=== PATIENT | female | born 1980 | race American Indian/Alaskan Native ===

== ENCOUNTER 2020-02-02 12:30 | Inpatient (IN) | payer MEDICAID, MEDICARE ==
[2020-02-02] MEDS ORDERED: ONDANSETRON 4 MG/2 ML INJ IV ONE (13:27)
[2020-02-02] MEDS ORDERED: SODIUM CHLORIDE 0.9% 1000 ML 1,000 ML IV ONE (13:27)
[2020-02-02] MEDS ORDERED: MORPHINE 4 MG/1 ML INJ IV ONE (13:27)
[2020-02-02 13:29] LABS: Basophils # (Auto) 0.1 K/mm3 (0.0-0.1); Eosinophils # (Auto) 0.3 K/mm3 (0.0-0.4); Eosinophils % (Auto) 2.6 % (0.0-4.3); Hematocrit 42.8 % (30.3-42.9); Hemoglobin 14.1 gm/dl (10.1-14.3); Lymphocytes # (Auto) 1.5 K/mm3 (1.2-5.4); Lymphocytes % (Auto) 15.7 % (13.4-35.0); Mean Corpuscular HGB Conc 33 % (30-34); Mean Corpuscular Volume 86 fl (79-97); Monocytes # (Auto) 0.8 K/mm3 (0.0-0.8); Monocytes % (Auto) 7.7 % (0.0-7.3); Platelet Count 313 K/mm3 (140-440); Red Blood Count 4.96 M/mm3 (3.65-5.03); Red Cell Distribution Width 15.4 % (13.2-15.2)
[2020-02-02 13:59] LABS: Alanine Aminotransferase 13 units/L (7-56); BUN/Creatinine Ratio 11; Blood Urea Nitrogen 8 mg/dL (7-17); Calcium 9.5 mg/dL (8.4-10.2); Hemolysis Index 13
--- NOTE | 2020-02-02 14:15 | Emergency Department Report ---
ED Abdominal Pain HPI - General Chief Complaint: Abdominal Pain Stated Complaint: ABD PAIN Time Seen by Provider: 02/02/20 13:21 Source: patient Mode of arrival: Ambulatory Limitations: No Limitations - History of Present Illness Initial Comments: Patient is a 39-year-old female presents emergency room with complaints of lower abdominal pain that began yesterday around 3 PM. She states at first she thought she may be constipated but has been having daily bowel movements. She states that she used an enema and had a small hard bowel movement. She states that she continued to have pain even after using the enema. She has associated nausea and one episode of vomiting. She denies any diarrhea, urinary symptoms, hematochezia, hematemesis, melena. She denies any past medical history or allergies to medications. She states that she has an abdominal surgical history of x1 and ovarian cyst removal which was performed laparoscopically. She states that they did not do an oophorectomy. Last menstrual cycle 01/07/2020. Severity scale (0 -10): 10 - Related Data Allergies Allergy/AdvReac Type Severity Reaction Status Date / Time No Known Allergies Allergy Verified 02/02/20 12:49 ED Review of Systems ROS: Stated complaint: ABD PAIN Other details as noted in HPI Comment: All other systems reviewed and negative ED Physical Exam - General Limitations: No Limitations General appearance: alert, in no apparent distress - Head Head exam: Present: atraumatic, normocephalic - Eye Eye exam: Present: normal appearance - ENT ENT exam: Present: mucous membranes moist - Respiratory Respiratory exam: Present: normal lung sounds bilaterally. Absent: respiratory distress, wheezes, rales, rhonchi, stridor, chest wall tenderness, accessory muscle use, decreased breath sounds, prolonged expiratory - Cardiovascular Cardiovascular Exam: Present: regular rate, normal rhythm, normal heart sounds. Absent: systolic murmur, diastolic murmur, rubs, gallop - GI/Abdominal GI/Abdominal exam: Present: soft, tenderness (lower abdominal ttp, RLQ greater than LLQ), guarding (voluntary), normal bowel sounds. Absent: distended, rebound, rigid - Neurological Exam Neurological exam: Present: alert, oriented X3 - Psychiatric Psychiatric exam: Present: normal affect, normal mood - Skin Skin exam: Present: warm, dry, intact ED Course Vital Signs 02/02/20 02/02/2020 12:50 13:41 15:35 Temperature 97.3 F L Pulse Rate 78 Respiratory 20 18 18 Rate Blood Pressure 126/68 [Left] O2 Sat by Pulse 98 Oximetry 02/02/20 02/02/20 16:08 16:11 Temperature 98.2 F Pulse Rate 76 Respiratory 18 18 Rate Blood Pressure 130/72 [Left] O2 Sat by Pulse 98 99 Oximetry - Consultations Consultation #1: 02/02/20 15:[address] Samaniego, ACCOUNT INSTALLATION SPECIALIST who states that pt will have to go to OR for ex lap, advised to give pt azithromycin and ancef 2g, will accept and resume care of pt ED Medical Decision Making - Lab Data Result diagrams: 02/02/20 13:02 02/02/20 13:02 Lab Results 02/02/20 02/02/20 02/02/20 Range/Units 13:02 13:02 13:02 WBC 9.8 (4.5-11.0) K/mm3 RBC 4.96 (3.65-5.03) M/mm3 Hgb 14.1 (10.1-14.3) gm/dl Hct 42.8 (30.3-42.9) % MCV 86 (79-97) fl MCH 29 (28-32) pg MCHC 33 (30-34) % RDW 15.4 H (13.2-15.2) % Plt Count 313 (140-440) K/mm3 Lymph % (Auto) 15.7 (13.4-35.0) % Meigs % (Auto) 7.7 H (0.0-7.3) % Eos % (Auto) 2.6 (0.0-4.3) % Baso % (Auto) 1.0 (0.0-1.8) % Lymph # 1.5 (1.2-5.4) K/mm3 Meigs # 0.8 (0.0-0.8) K/mm3 Eos # 0.3 (0.0-0.4) K/mm3 Baso # 0.1 (0.0-0.1) K/mm3 Seg Neutrophils % 73.0 H (40.0-70.0) % Seg Neutrophils # 7.2 (1.8-7.7) K/mm3 Sodium 139 (137-145) mmol/L Potassium 4.9 (3.6-5.0) mmol/L Chloride 104.3 (98-107) mmol/L Carbon Dioxide 20 L (22-30) mmol/L Anion Gap 20 mmol/L BUN 8 (7-17) mg/dL Creatinine 0.7 (0.7-1.2) mg/dL Estimated GFR > 60 ml/min BUN/Creatinine Ratio 11 % Glucose 103 H (65-100) mg/dL Calcium 9.5 (8.4-10.2) mg/dL Total Bilirubin 0.20 (0.1-1.2) mg/dL AST 14 (5-40) units/L ALT 13 (7-56) units/L Alkaline Phosphatase 59 (35-129) units/L Total Protein 7.7 (6.3-8.2) g/dL Albumin 4.0 (3.9-5) g/dL Albumin/Globulin Ratio 1.1 % Lipase 88 H (13-60) units/L HCG, Qual (Negative) Urine Color (Yellow) Urine Turbidity (Clear) Urine pH (5.0-7.0) Ur Specific [place] (1.003-1.030) Urine Protein (Negative) mg/dL Urine Glucose (UA) (Negative) mg/dL Urine Ketones (Negative) mg/dL Urine Blood (Negative) Urine Nitrite (Negative) Urine Bilirubin (Negative) Urine Urobilinogen (<2.0) mg/dL Ur Leukocyte Esterase (Negative) Urine WBC (Auto) (0.0-6.0) /HPF Urine RBC (Auto) (0.0-6.0) /HPF U Epithel Cells (Auto) (0-13.0) /HPF 02/02/20 02/02/20 Range/Units 13:02 14:22 WBC (4.5-11.0) K/mm3 RBC (3.65-5.03) M/mm3 Hgb (10.1-14.3) gm/dl Hct (30.3-42.9) % MCV (79-97) fl MCH (28-32) pg MCHC (30-34) % RDW (13.2-15.2) % Plt Count (140-440) K/mm3 Lymph % (Auto) (13.4-35.0) % Meigs % (Auto) (0.0-7.3) % Eos % (Auto) (0.0-4.3) % Baso % (Auto) (0.0-1.8) % Lymph # (1.2-5.4) K/mm3 [place]igs # (0.0-0.8) K/mm3 Eos # (0.0-0.4) K/mm3 Baso # (0.0-0.1) K/mm3 Seg Neutrophils % (40.0-70.0) % Seg Neutrophils # (1.8-7.7) K/mm3 Sodium (137-145) mmol/L Potassium (3.6-5.0) mmol/L Chloride (98-107) mmol/L Carbon Dioxide (22-30) mmol/L Anion Gap mmol/L BUN (7-17) mg/dL Creatinine (0.7-1.2) mg/dL Estimated GFR ml/min BUN/Creatinine Ratio % Glucose (65-100) mg/dL Calcium (8.4-10.2) mg/dL Total Bilirubin (0.1-1.2) mg/dL AST (5-40) units/L ALT (7-56) units/L Alkaline Phosphatase (35-129) units/L Total Protein (6.3-8.2) g/dL Albumin (3.9-5) g/dL Albumin/Globulin Ratio % Lipase (13-60) units/L HCG, Qual Negative (Negative) Urine Color Straw (Yellow) Urine Turbidity Clear (Clear) Urine pH 7.0 (5.0-7.0) Ur Specific [place] 1.004 (1.003-1.030) Urine Protein <15 mg/dl (Negative) mg/dL Urine Glucose (UA) Neg (Negative) mg/dL Urine Ketones Neg (Negative) mg/dL Urine Blood Neg (Negative) Urine Nitrite Neg (Negative) Urine Bilirubin Neg (Negative) Urine Urobilinogen < 2.0 (<2.0) mg/dL Ur Leukocyte Esterase Neg (Negative) Urine WBC (Auto) 1.0 (0.0-6.0) /HPF Urine RBC (Auto) 1.0 (0.0-6.0) /HPF U Epithel Cells (Auto) 4.0 (0-13.0) /HPF - Radiology Data Radiology results: report reviewed CT abdomen pelvis w con INDICATION: Lower abdominal pain right greater than left.. TECHNIQUE: All CT scans at this location are performed using the following dose modulation technique: Automated exposure control. CONTRAST: Omnipaque 300, 100 cc IV injection COMPARISON: None available. CT ABDOMEN: The parenchymal organs are unremarkable in appearance. Negative for abdominal mass, fluid or inflammation. The bowel is not dilated or thickened. The appendix is normal. CT PELVIS: Multiple uterine fibroids. A large fundal lesion measuring 9 cm is necrotic. The right ovary contains a small complex cyst measuring 2.9 cm. Negative for pelvic mass. A small amount of pelvic free fluid is present IMPRESSION: 1. Presumed large necrotic fundal fibroid. 2. Small complex right ovarian cyst with small amount of free fluid. Signer Name: Reed Carlisle MD Signed: 02/02/2020 3:16 PM Workstation Name: [id number] Transcribed By: XIN Dictated By: Reed Carlisle MD Electronically Authenticated By: Reed Carlisle MD Signed Date/Time: 02/02/201515 DD/ 09 TD/TT: - Medical Decision Making Patient is a 39-year-old female presents emergency room with complaints of lower abdominal pain that began yesterday around 3 PM. She states at first she thought she may be constipated but has been having daily bowel movements. She states that she used an enema and had a small hard bowel movement. She states that she continued to have pain even after using the enema. She has associated nausea and one episode of vomiting. She denies any diarrhea, urinary symptoms, hematochezia, hematemesis, melena. She denies any past medical history or allergies to medications. She states that she has an abdominal surgical history of x1 and ovarian cyst removal which was performed laparoscopically. She states that they did not do an oophorectomy. Last menstrual cycle 2019. Vitals are normal. On exam patient has lower abdominal tenderness to palpation right greater than left with voluntary guarding, no peritoneal signs, no rebound tenderness, normal bowel sounds. Labs are stable. hCG is negative. UA without evidence of UTI. CT abdomen pelvis with IV contrast: 1. Presumed large necrotic fundal fibroid. 2. Small complex right ovarian cyst with small amount of free fluid. Patient given 1 L IV fluids, Zofran, morphine but continued to have pain, patient was given 1 mg of Dilaudid. spoke with Dr. Samaniego, ACCOUNT INSTALLATION SPECIALIST who states that pt will have to go to OR for ex lap, advised to give pt azithromycin and ancef 2g, will accept and resume care of pt. patient states that she has not eaten any food since 11 PM last night. - Differential Diagnosis Appendicitis, ovarian cyst, TOA, UTI, PID, ovarian torsion, bowel obstructi Critical care attestation.: If time is entered above; I have spent that time in minutes in the direct care of this critically ill patient, excluding procedure time. ED Disposition Clinical Impression: Fibroid Abdominal pain Qualifiers: Abdominal location: lower abdomen, unspecified Qualified Code(s): R10.30 - Lower abdominal pain, unspecified Disposition: OP ADMIT IP TO THIS HOSP Is pt being admited?: Yes Does the pt Need Aspirin: No Condition: Stable Instructions: Abdominal Pain (ED) Referrals: NHUNG VALENCIA MD [Staff Physician] - 3-5 Days Time of Disposition: 16:02 Print Language: CHINESE
--- NOTE | 2020-02-02 15:20 | Cat Scan Report ---
CT abdomen pelvis w con INDICATION: Lower abdominal pain right greater than left.. TECHNIQUE: All CT scans at this location are performed using the following dose modulation technique: Automated exposure control. CONTRAST: Omnipaque 300, 100 cc IV injection COMPARISON: None available. CT ABDOMEN: The parenchymal organs are unremarkable in appearance. Negative for abdominal mass, fluid or inflammation. The bowel is not dilated or thickened. The appendix is normal. CT PELVIS: Multiple uterine fibroids. A large fundal lesion measuring 9 cm is necrotic. The right ova ry contains a small complex cyst measuring 2.9 cm. Negative for pelvic mass. A small amount of pelvic free fluid is present IMPRESSION: 1. Presumed large necrotic fundal fibroid. 2. Small complex right ovarian cyst with small amount of free fluid. Signer Name: Reed Carlisle MD Signed: 02/02/2020 3:16 PM Workstation Name: [id number]
[2020-02-02] MEDS ORDERED: HYDROmorphone 1 MG/1 ML INJ IV ONE (15:30)
[2020-02-02 15:40] LABS: Bilirubin,Urine NEG (Negative); Blood,Urine NEG (Negative); Color,Urine Straw (Yellow); Protein,Urine <15 mg/dL mg/dL (Negative); Urobilinogen,Urine < 2.0 mg/dL (<2.0)
[2020-02-02] MEDS ORDERED: AZITHROMYCIN 500 MG in SODIUM CHLORIDE 0.9% 250ML 250 ML IV ONE (16:00)
--- NOTE | 2020-02-02 18:14 | History and Physical Report ---
History of Present Illness Date of examination: 02/02/20 Date of admission: 02/02/2020 Chief complaint: abdominal pains x 1 day duration History of present illness: Patient is a 39-year-old female presents emergency room with complaints of lower abdominal pain that began yesterday around 3 PM. She states at first she thought she may be constipated but has been having daily bowel movements. She states that she used an enema and had a small hard bowel movement. She states that she continued to have pain even after using the enema. She has associated nausea and one episode of vomiting. She denies any diarrhea, urinary symptoms, hematochezia, hematemesis, melena. She denies any past medical history or allergies to medications. She states that she has an abdominal surgical history of x1 and ovarian cyst removal which was performed laparoscopically. She states that they did not do an oophorectomy. Last menstrual cycle 01/07/2020. Past History Past Surgical History: section, other (laparoscopic cystectomies) CONFECTIONERY MAKER History: fibroids, other (bilateral ovarian cysts. x 1 10 yrs ago. Patient unequivocal her child bearing needs are over.) - Obstetrical History : 1 Para: 1 Number of Living Children: 1 Medications and Allergies Allergies Allergy/AdvReac Type Severity Reaction Status Date / Time No Known Allergies Allergy Verified 02/02/20 12:49 Review of Systems Constitutional: anorexia, no fever, no chills, no chronic pain Cardiovascular: no chest pain, no orthopnea, no shortness of breath, no high blood pressure Respiratory: no cough, no cough with sputum, no shortness of breath, no dyspnea on exertion, no wheezing Breasts: deferred Gastrointestinal: abdominal pain, constipation Genitourinary: deferred, no vaginal bleeding Rectal Exam: deferred Integumentary: no jaundice Neurological: no confusion - Vital Signs Vital signs: Vital Signs Temp Pulse Resp BP Pulse Ox 97.3 F L 78 20 126/68 98 02/02/20 12:50 02/02/20 12:50 02/02/20 12:50 02/02/20 12:50 02/02/20 12:50 Temp Pulse Resp BP Pulse Ox 98.2 F 76 18 130/72 99 02/02/20 16:08 02/02/20 16:08 02/02/20 16:11 02/02/20 16:08 02/02/20 16:11 - Physical Exam Breasts: Positive: deferred Lungs: Positive: Normal air movement Abdomen: Positive: distention, tenderness, guarding Uterus: Positive: other (per CT: 9cm necrotic fibroid) Extremities: Positive: normal Results Result Diagrams: 02/02/20 13:02 02/02/20 13:02 Abnormal lab results 02/02/20 02/02/20 02/02/20 Range/Units 13:02 13:02 13:02 RDW 15.4 H (13.2-15.2) % [place] % (Auto) 7.7 H (0.0-7.3) % Seg Neutrophils % 73.0 H (40.0-70.0) % Carbon Dioxide 20 L (22-30) mmol/L Glucose 103 H (65-100) mg/dL Lipase 88 H (13-60) units/L All other labs normal. CT scan - abdomen: other (CT scan report was relayed through the ER MD. CT report was yet to be transcribed.) Assessment and Plan - Patient Problems (1) Abdominal pain Current Visit: Yes Status: Acute Qualifiers: Abdominal location: lower abdomen, unspecified Qualified Code(s): R10.30 - Lower abdominal pain, unspecified (2) Fibroid Current Visit: Yes Status: Acute Plan to address problem: The severity of patient's pain and discomfort warrants exploration for cuase[s]. Patient understood it was unusual for fibroids to suddenly turn into a painful necrotic mass and therefore the need for exploration. She had all her questions answered and undestood the extent of her surgery will be dictated by intra- operative findings.She consented for suergery.
[2020-02-02] MEDS ORDERED: ACETAMINOPHEN 325 MG TAB PO PRN (18:39)
[2020-02-02] MEDS ORDERED: ONDANSETRON 4 MG/2 ML INJ IV PRN ×2 (18:39→23:28)
--- NOTE | 2020-02-02 18:58 | Anesthesia Consultation ---
Anesthesia Consult and Med Hx Date of service: 02/02/20 - Airway Anesthetic Teeth Evaluation: Poor ROM Head & Neck: Adequate Mental/Hyoid Distance: Adequate Mallampati Class: Class II Intubation Access Assessment: Probably Good - Pulmonary Exam CTA: Yes - Cardiac Exam Cardiac Exam: RRR - Pre-Operative Health Status ASA Pre-Surgery Classification: ASA3, Emergency Proposed Anesthetic Plan: General - Pulmonary Hx Smoking: No Hx Respiratory Symptoms: No - Cardiovascular System Hx Hypertension: No Hx Heart Attack/AMI: No Hx Percutaneous Transluminal Coronary Angioplasty (PTCA): No - Central Nervous System CVA: No - Gastrointestinal Hx Gastroesophageal Reflux Disease: No - Endocrine Hx Renal Disease: No Hx Liver Disease: No Hx Insulin Dependent Diabetes: No Hx Non-Insulin Dependent Diabetes: No Hx Thyroid Disease: No - Hematic Hx Anemia: No - Other Systems Hx Obesity: Yes (BMI 41) - Additional Comments Anesthesia Medical History Comments: PMH obesity presenting with abdominal pain with concern for necrotic fibroid on imaging now scheduled for ex-lap. No nausea/vomiting today. Plan GETA.
[2020-02-02] MEDS ORDERED: SCOPOLAMINE TRANSDERMAL PATCH 72 HR TD ONE (18:59)
--- NOTE | 2020-02-02 18:59 | Anesthesia Day of Surgery ---
Anesthesia Day of Surgery - Day of Surgery Patient Examined: Yes Patient H&P Reviewed: Yes Patient is NPO: Yes
[2020-02-02] MEDS ORDERED: MORPHINE 4 MG/1 ML INJ IM ONE (19:27)
[2020-02-02] MEDS ORDERED: HYDROmorphone 2 MG/1 ML INJ IV ONE (22:16)
[2020-02-02] MEDS ORDERED: HYDROmorphone 1 MG/1 ML INJ ONE ×2 (22:20→23:26)
[2020-02-02] MEDS ORDERED: fentaNYL 100 MCG/2 ML INJ ONE ×2 (22:44→23:47)
[2020-02-02] MEDS ORDERED: LIDOCAINE MPF (2%) 20 MG/1 ML VIAL 5 ML ONE (22:44)
[2020-02-02] MEDS ORDERED: ROCURONIUM 50 MG/5 ML INJ IV ONE (22:44)
[2020-02-02] MEDS ORDERED: propofoL 200 MG/20 ML VIAL IV ONE (22:45)
[2020-02-02] MEDS ORDERED: dexAMETHasone 20 MG/5 ML VIAL ONE (22:53)
[2020-02-02] MEDS ORDERED: ONDANSETRON 4 MG/2 ML INJ ONE (22:53)
[2020-02-02] MEDS ORDERED: METOCLOPRAMIDE 10 MG/2 ML INJ ONE (22:53)
[2020-02-02] MEDS ORDERED: NEOSTIGMINE 10MG/10 ML INJ MDV ONE (22:54)
[2020-02-02] MEDS ORDERED: KETOROLAC 30 MG/1 ML INJ ONE (22:54)
[2020-02-02] MEDS ORDERED: GLYCOPYRROLATE 0.4 MG/2 ML INJ ONE (22:54)
[2020-02-02] MEDS ORDERED: ceFAZolin 1 GM VIAL ONE ×2 (23:11→23:27)
[2020-02-02] MEDS ORDERED: HYDROmorphone 1 MG/1 ML INJ IV PRN (23:28)
[2020-02-03] MEDS ORDERED: LACTATED RINGERS 1,000 ML ONE ×2 (00:07→02:00)
[2020-02-03] MEDS ORDERED: METHYLENE BLUE 50 MG/10 ML AMP ONE (00:46)
[2020-02-03] MEDS ORDERED: METHYLENE BLUE 50 MG/10 ML AMP IV ONE (01:30)
[2020-02-03] MEDS ORDERED: SODIUM CHLORIDE 0.9% IRR 1,500 ML BOTTLE IR ONE (01:31)
--- NOTE | 2020-02-03 02:10 | Event Note ---
Date: 02/03/20 Intraoperative consultation called by Dr. Zhao
--- NOTE | 2020-02-03 02:18 | Procedure Note ---
Date of procedure: 02/03/20 Pre-op diagnosis: abdominal pain Post-op diagnosis: same Procedure: exploratory laparotomy Findings: Intraoperative consultation called by Dr. Zhao to evaluate colon for possible twisting. Ct scan A/P reviewed with no evidence of bowel obstruction or bowel pathology. Patient was found to have a right ovarian cyst and fibroid uterus with possible fibroid necrosis. Patient already in operating room with exploratory laparotomy in progress and s/p hysterectomy. Through the existing lower midline incision, the colon was evaluated. The colon in question was brought into the field. This was identified as the cecum. This was followed to the terminal ileum and appendix which were unremarkable. There was a moderate sized right ovarian cyst. The ascending colon and transverse colon were partially visualized and palpated. There was no dilatation, thickening, twisting identified. The bowel and omentum were placed back into anatomic position. The abdomen was closed using a running looped PDS suture in the usual fashion. Dr. Zhao completed the remainder of the case. The patient remained in stable condition throughout. Anesthesia: GETA Surgeon: DARRYL NIELSEN Estimated blood loss: minimal Pathology: none Condition: stable Disposition: other (OR - for completion of remainder of case by Dr. Zhao)
[2020-02-03] MEDS ORDERED: ONDANSETRON 4 MG/2 ML INJ IV PRN (02:21)
[2020-02-03] MEDS ORDERED: MORPHINE 2 MG/1 ML INJ IV PRN (02:21)
[2020-02-03] MEDS ORDERED: MORPHINE 4 MG/1 ML INJ IV PRN (02:21)
[2020-02-03] MEDS ORDERED: NALOXONE 0.4 MG/1 ML INJ IV PRN (02:21)
[2020-02-03] MEDS ORDERED: ACETAMINOPHEN 325 MG TAB PO PRN (02:21)
--- NOTE | 2020-02-03 02:48 | Operative Report ---
Operative Report Operative Report: Date of surgery: January Admitting diagnosis: Right lower abdominal pain, necrotic uterine fibroids Postoperative diagnosis: The same Procedure: Exploratory laparotomy, total abdominal hysterectomy, cystoscopy. Surgeon: Sarah Zhao MD Grants Assistant surgeon: MD Evens Anesthesia: General anesthesia Anesthesiologist: Cherelle lCemons Estimated blood loss: 300 cc Complications: None Findings: The vulva and vagina were grossly normal. Cystoscopy postoperatively revealed patent ureteric orifices with urine seen ejecting from both sides. Intra-abdominally, the uterus was enlarged with fibroids 12 x 16-week size. Both ovaries were grossly normal but bound by filmy adhesions to the fallopian tubes. The bowels seen through the midline subumbilical incision were grossly normal as per Dr Horner. The appendix was visualized and was within normal. Palpation within the entire abdominal cavity did not reveal any abnormalities. The inferior surface of the liver, the inferior dome of the diaphragm the kidneys, the pre-and para aortic group of lymph nodes as well as bowel loops were all palpably normal. Procedure in details: The patient was taken to the operating room. In the straight supine position she was given general anesthesia. The patient was then put in the straight supine position and prepped and the vulva vagina and abdomen. An indwelling Sauer's catheter was inserted. The drapes were placed. A timeout was done. With the go ahead from the clinical care coordinator, a sub-umbilical midline incision was made. This incision was carried across the subcutaneous layer to the fascia. The fascia was divided transversely. The underlying straps of rectus abdominis muscles were divided and in the midline. The exploration of the entire peritoneal cavity was done and the findings were reported above. The Elmore retractor was placed. Slipping loops of bowel were packed away from the pelvis using wet lap sponges. The bulk of the fibroid uterus was removed by using the Enseal to cut down the adnexa on both sides down to the lower uterine aspect upon which the uterus was transected above the cervix. This was done to allow visibility within the pelvis. The cervix was thereafter removed by using the Enseal to thermally coagulate and divide the uterine arterial branches all the way down to the utero sacral ligaments and then excising this block of tissue at the vaginal apex. The vaginal angles were secured with #1 Vicryl. The vaginal cuff was sewn with continuous #1 Vicryl. The vaginal vault was subsequently closed with #1 Vicryl. Hemostasis within the pelvis was triple checked and secured. The pelvis was irrigated. All instruments and sponges were recovered. The pelvis was carefully examined and the ovaries and tubal remnants were excluded as potential causes of patient's pain. , general surgeon, was called in to evaluate the rest of the intraperitoneal contents. Upon completion of the exploration, the fascia was closed with #1 loop PDS. The skin was closed subcuticularly with 3-0 Vicryl on a Leland. A cystoscopy was done with the patient in the frog leg position, the patient having been given intravenous fluorescein dye. Both ureteric orifices were seen to be patent. The patient tolerated the procedure well with no complications. The estimated blood loss was about 300 cc. All sponges and instruments were accounted for. The patient was transferred to the recovery room in good condition
[2020-02-03] MEDS: KETOROLAC 30 MG/1 ML INJ IV SCH ×2 (06:18→12:00)
--- NOTE | 2020-02-03 07:07 | Post Anesthesia Evaluation ---
- Post Anesthesia Evaluation Patient Participated: Yes Airway Patent: Yes Stable Respiratory Function: Yes Nausea/Vomiting: No Temp > 96.8F: Yes Pain Manageable: Yes Adequeate Hydration: Yes Anesthesia Complications: No
[2020-02-03] MEDS: ceFAZolin/NS 1 GM/50 ML 1 GM/50 ML BAG IV SCH ×2 (08:07→15:27)
[2020-02-03] MEDS ORDERED: PETROLATUM,WHITE 30 GM OINT TP PRN (09:23)
[2020-02-03] MEDS: DOCUSATE SODIUM 100 MG CAP PO SCH ×2 (09:53→22:30)
[2020-02-03] MEDS: HYDROcodone/ACETAMINOPHEN 5-325 MG TAB PO PRN ×2 (15:27→22:30)
[2020-02-03] MEDS ORDERED: IBUPROFEN 800 MG TAB PO PRN (15:30)
--- NOTE | 2020-02-03 15:32 | Progress Note ---
Assessment and Plan - Patient Problems (1) S/P JONEL (total abdominal hysterectomy) Current Visit: Yes Status: Acute Plan to address problem: stable postop s/p JONEL. Cont postop care. Stopped IV pain meds and changed to po. Hgn pending for tomorrow am. Subjective - Subjective Date of service: 02/03/20 (POD 0) Interval history: Pt is s/p JONEL early this am. Good pain control. No flatus. PO tolerated. PT still has garza. No F/C/N/V/CP/SOB. Her preop pain is resolved. Objective - Vital Signs Latest vital signs: Vital Signs Temp Pulse Pulse Resp BP BP Pulse Ox 02/03/20 13:35 99 F 70 18 125/68 02/03/20 09:52 20 02/03/20 08:40 98.5 F 81 18 124/54 02/03/20 06:48 18 02/03/20 06:18 18 02/03/20 03:53 98.1 F 77 18 157/75 100 02/03/20 03:50 80 18 100 02/03/20 03:00 70 14 138/66 97 02/03/20 02:55 69 20 144/71 93 02/03/20 02:50 66 20 147/69 95 02/03/20 02:45 63 18 129/75 96 02/03/20 02:40 63 16 151/66 96 02/03/20 02:35 70 18 148/58 97 02/03/20 02:32 97.1 F L 64 14 147/101 97 02/02/20 22:52 18 02/02/20 22:22 18 02/02/20 20:01 18 02/02/20 20:00 18 02/02/20 19:46 97.6 F 67 18 124/55 99 02/02/20 19:31 18 02/02/20 16:11 18 99 02/02/20 16:08 98.2 F 76 18 130/72 98 02/02/20 15:35 18 Intake and Output 02/02/20 02/03/20 02/03/20 23:59 07:59 15:59 Intake Total 10 420 Output Total 600 Balance 10 -180 Intake: IV 10 60 ANCEF/NS 1 GM/50 ML 1 gm 50 In 50 ml @ 100 mls/hr IV Q8H [facility] Rx#:[id number] Right Antecubital 10 10 Oral 360 Output: Urine 600 Indwelling Catheter 600 Other: Total, Intake Amount 240 Total, Output Amount 300 Voiding Method Indwelling Catheter Indwelling Catheter # Voids Indwelling Catheter 1 Void 0 Weight 122.4 kg Patient Weight 02/03/20 23:59 Weight 122.4 kg - Exam Abdomen: Present: normal appearance (dressing C/D/I. Abd appropriately tender)
[2020-02-04] MEDS: HYDROcodone/ACETAMINOPHEN 5-325 MG TAB PO PRN ×2 (05:51→11:33)
[2020-02-04 05:57] LABS: Hematocrit 33.9 % (30.3-42.9); Hemoglobin 11.1 gm/dl (10.1-14.3)
[2020-02-04] MEDS: DOCUSATE SODIUM 100 MG CAP PO SCH (11:32)
[2020-02-04 13:17] VITALS: BP 143/51
--- NOTE | 2020-02-04 13:22 | Progress Note ---
Assessment and Plan plan for discharge to home [facility] Subjective - Subjective Date of service: 02/04/20 Interval history: S/P hysterectomy POD#3 Patient AAOx3 ambulatory,tolerating general diet, pain well controlled,afebrile,normal bowel and bladder function intraoperative course reviewed with patient per Dr Zhao's op report plan for d/c to home with fup in 7 days [facility] Patient reports: appetite normal, voiding normally, pain well controlled, flatus, ambulating normally Objective - Vital Signs Latest vital signs: Vital Signs Temp Pulse Resp BP BP Pulse Ox 02/04/20 11:51 97.5 F L 72 20 143/51 97 02/04/20 07:54 98.4 F 76 16 117/55 117/55 93 02/04/20 05:51 20 02/04/20 05:36 98.4 F 74 18 121/61 99 02/04/20 01:29 98.2 F 79 20 136/60 93 02/03/20 22:30 18 02/03/20 21:26 97.3 F L 80 20 128/74 98 02/03/20 15:50 98.4 F 81 20 132/73 02/03/20 13:35 99 F 70 18 125/68 Intake and Output 02/03/20 02/04/20 02/04/20 23:59 07:59 15:59 Intake Total 630 680 360 Output Total 200 600 350 Balance 430 80 10 Intake: IV 10 Right Antecubital 10 Oral 440 560 360 Intake, Free Water 180 120 Output: Urine 200 600 350 Void 200 600 350 Other: Total, Intake Amount 120 240 360 Total, Output Amount 200 600 350 Voiding Method Toilet # Voids 0 Void 0 1 # Bowel Movements 0 - Exam Breasts: Present: deferred Cardiovascular: Present: Regular rate Lungs: Present: Clear to auscultation Abdomen: Present: normal appearance, soft, normal bowel sounds Uterus: Present: normal Incision: Present: normal, dry, edematous, intact, warm
== END 2020-02-04 14:45 | disposition home or self-care (01) | DRG 742 ==
LOC: ED 12:30 → OB 18:39
PROVIDERS: ADMIT Obstetrics & Gynecology; ATTEND Obstetrics & Gynecology
PROC: 0UT90ZZ Resection of Uterus, Open Approach (ICD-10-PCS; principal; 2020-02-02)
PROC: 0TJB8ZZ Inspection of Bladder, Via Natural or Artificial Opening Endoscopic (ICD-10-PCS; 2020-02-02)
PROC: 0DJD0ZZ Inspection of Lower Intestinal Tract, Open Approach (ICD-10-PCS; 2020-02-03)
DX: D25.9 Leiomyoma of uterus, unspecified (principal); Z68.41 Body mass index [BMI] 40.0-44.9, adult; N83.201 Unspecified ovarian cyst, right side; E66.01 Morbid (severe) obesity due to excess calories
CPT/HCPCS: 36415; 74177; 80053; 81001; 83690; 84703; 85014; 85018; 85025; 86850; 86900; 86901; 88307; 96365; 96375; G0378; A6250; J0456; J0690; J1100; J1170; J1885; J2270; J2405; J2704; J2710; J2765; J3010; J7030; J7050; J7120; Q9967; Q9968